=== PATIENT | male | born 1950 | race African-American/Black ===

== ENCOUNTER 2019-01-23 15:21 | Inpatient (IN) | payer MEDICARE, MEDICAID, SELFPAY ==
[2019-01-23] VITALS (14 sets, daily range): BP systolic 115–149; BP diastolic 80–100; PULSE 92–116; RESP 12–26; TEMP 36.1–36.7; O2SAT 94–100; BMI 33.9; BMI 32.8
--- NOTE | 2019-01-23 15:34 | RAD_ITS ---
STUDY: X-RAY CHEST REASON FOR EXAM: Male, 68 years old. Increasing shortness of breath and cough TECHNIQUE: Two view of the chest were performed COMPARISON: None. FINDINGS: There are irregular markings in the bases bilaterally, presumably scarring and/or atelectasis. There is increased density in the posterior lung as seen on the lateral view. There is mild to moderate emphysema. However, lung volumes are near normal. There is no pneumothorax, pulmonary edema or pleural effusions. Cardiac size is normal. Osseous structures are intact. There is no gas under the diaphragms. RAD/Chest PA and Lateral IMPRESSION: 1. Abnormal basilar markings, possibly scarring and/or atelectasis. Recommend more definitive evaluation with CT of the chest. 2. Emphysema. Electronically Signed: Cayetano Galan, at 16:57 EDT Tel , Service support ,
--- NOTE | 2019-01-23 15:34 | EKG12_ITS ---
Test Reason : SOB Blood Pressure : / mmHG Vent. Rate : 092 BPM Atrial Rate : 416 BPM P-R Int : 000 ms QRS Dur : 084 ms QT Int : 348 ms P-R-T Axes : 066 -67 040 degrees QTc Int : 430 ms Sinus rhythm Left axis deviation Low voltage QRS Nonspecific ST abnormality Abnormal ECG Confirmed by CALLIE HOFFMANN, ZAIRA ([id number]), city editor CARRINGTON ASENCIO ([id number]) on 01/25/2019 8:59:28 AM Referred By: KAYKAY Confirmed By:ZAIRA LEDESMA MD
--- NOTE | 2019-01-23 15:40 | ED.VISSUMM ---
- ER Visit Summary Date of Service: 01/23/19 Chief Complaint: Shortness of breath History of Present Illness: The patient is a 68 M who presents with shortness of breath that is been getting worse for the past 2 days. Patient states that he has a history of COPD. Patient was recently treated for pneumonia with Zithromax. Patient states she is coughing up some ray and yellow sputum production. Patient admits to subjective chills and sweats. Patient also admits to some pain over his left chest. Describes the pain as sharp and worse with coughing. Patient denies any leg pain or swelling. Physical Examination: Vital signs are stable except for pulse oximeter of 98% on 4 L nasal cannula and a tachypnea of 24. Patient is afebrile. Patient is in no acute distress. Oral mucosa is pink and moist. Neck is supple. Trachea is midline. There is no JVD noted. Heart was regular rate and rhythm. Lungs show diffuse rhonchi and diminished sounds bilaterally. There is good respiratory effort. There are no retractions noted. Abdomen is soft. Bowel sounds are normal. There is no tenderness. Cranial nerves II through XII are intact. There are no focal motor or sensory deficits noted. Extremities are intact. There is no leg edema or tenderness. Test Results: PA and lateral chest x-ray shows scarring in the bases bilaterally. EKG showed sinus rhythm with a rate of 92. There are no acute ST or T wave changes. CBC and basic metabolic profile were essentially within normal limits. Troponin was normal. Emergency Department Course and Treatment: Patient was given a DuoNeb aerosol and was initially feeling better. Patient then became more short of breath. Patient states he felt like he needed his CPAP. Patient was started on CPAP at 5 cm water pressure. Patient was given a dose of Levaquin here. Case was discussed with the hospitalist. He will admit the patient and his service. Patient understands and is agreeable with the plan. All questions were answered. Disposition: Admit to hospital Impression: COPD exacerbation This note was generated with [employer] dictation software. It may contain incorrect words, spelling, and punctuation that were not noted in review of the chart prior to signing ED Disposition - Plan for ED Patient: Disposition: Acute Care Hospital [facility] Diagnosis: COPD exacerbation
--- NOTE | 2019-01-23 15:54 | NURSING ---
NO OLD EKGS
[2019-01-23] MEDS: Ipratropium/Albuterol Sulfate 3 ML AMPUL.NEB INHALATION ×2 (15:58→23:35)
[2019-01-23 16:51] LABS: Anion Gap 5 (5-15); BUN 5 mg/dL (7-18); BUN/Creat Ratio 4.3 RATIO (10-20); Calcium,Total 9.3 mg/dL (8.5-10.1); Chloride 106 mmol/L (98-107); Creatinine, Serum 1.15 mg/dL (0.70-1.30); EST Glomerular Filtration Rate 67 mL/min (>60); Est Glom Filt Rate - Afr Amer 81 mL/min (>60); Estimated Creatinine Clearance 65.48 ml/min; Glucose 94 mg/dL (74-106); Potassium 4.8 mmol/L (3.5-5.1); Sodium Level 139 mmol/L (136-145)
[2019-01-23 17:33] LABS: Absolute Lymphocyte Count 1.22 X10^3/uL (0.83-4.51); Absolute Neutrophil Count 6.8 X10^3/uL (2.0-7.7); Basophil# 0.05 X10^3/uL; Basophil% 0.5 % (0-1); Eosinophil# 0.66 X10^3/uL; Hematocrit 36.4 % (40-54); Hemoglobin 10.4 g/dL (13.0-16.5); Lymphocyte # 1.22 X10^3/ul (4.0); Mean Corp Hgb Conc 28.6 g/dL (32-36); Mean Corpuscular Hgb 25.9 pg (27.0-32.0); Mean Corpuscular Volume 90.5 fL (80-94); Mean Platelet Vol. 9.8 fl (6.2-12.0); Monocyte# 0.59 X10^3/uL; Monocyte% 6.3 % (0-10); NRBC Flagged by Analyzer 0 % (0-5); Neutrophil # 6.84 X10^3/uL (2.7-7.7); Neutrophil % 72.7 % (47-70); Platelet Count 307 K/mm3 (150-450); RBC Distribution Width CV 15.3 % (11.6-14.6); Red Blood Count 4.02 M/mm3 (4.6-6.2); White Blood Count 9.4 K/mm3 (4.4-11.0)
[2019-01-23 18:04] LABS: Lactic Acid 1.5 mmol/L (0.4-2.0)
[2019-01-23] MEDS: levoFLOXacin IV 750 MG/150 ML BAG 100 MG IV (19:14)
--- NOTE | 2019-01-23 19:17 | PCM.HP.STD ---
Problem List (1) COPD exacerbation Status: Acute History of Present Illness Date of Admission: 01/23/19 Chief Complaint: shortness of breath The patient is a 68 year old male patient with a significant past medical history of COPD presents with 2 days of increasing shortness of breath. Patient was seen and treated for pneumonia 3 weeks ago and subsequently recovered after having received a round of azithromycin. Today he describes his shortness of breath is worsening along with a sharp pain associated with coughing, mid sternal. Patient denies any fevers at this time no nausea or vomiting or diarrhea. Laboratory studies are unremarkable, however, the patient required BiPAP therapy to maintain oxygenation greater than 90% and will therefore be maintained overnight for observation and possibly discharge in the morning. Past Medical History Allergies warfarin Allergy (Verified 01/23/19 15:30) Rash Home Medications: Ambulatory Orders Medication Instructions Recorded ALPRAZolam [Xanax] 0.25 mg PO BID 01/23/19 Apixaban [Eliquis] 5 mg PO BID 01/23/19 Docusate Sodium [Colace] 200 mg PO BID 01/23/19 Finasteride 5 mg PO DAILY 01/23/19 Glipizide 5 mg PO BID 01/23/19 Hydrocodone/Acetaminophen [[place] 1 ea PO Q8H PRN PRN 01/23/19 10-325 Tablet] Insulin Aspart [Novolog Flexpen 12 units SUBCUT TIDCM 01/23/19 ([facility])] Insulin Detemir [Levemir] 15 units SQ QHS 01/23/19 Ipratropium/Albuterol Sulfate 3 ml PO 4X/DAY 01/23/19 [Iprat-Albut 0.5-3(2.5) mg/3 ml] Metoprolol Succinate 50 mg PO DAILY 01/23/19 Polyethylene Glycol 3350 [Miralax] 17 gm PO DAILY 01/23/19 Sennosides [Senna] 8.6 mg PO BID 01/23/19 Tamsulosin HCl 0.4 mg PO DAILY 01/23/19 Smoking Status: Former smoker Tobacco Use: Cigarettes - *Family History Maternal History Items: No pertinent history Review of Systems Constitutional: Denies: Chills, Fever, Weight Change HEENT: Denies: Head Aches, Sinus Congestion, Sinus Drainage Cardiovascular: Denies: Chest Pain, Palpitations Respiratory: Reports: Cough, Shortness of breath at rest, Wheezing. Denies: Sputum production Gastrointestinal: Denies: Abdominal Pain, Nausea, Vomiting Genitourinary: Denies: Dysuria Musculoskeletal: Denies: Joint Pain, Joint Tenderness Skin: Denies: Rash, Wounds Neurological: Denies: Numbness, Tingling, Focal weakness Psychiatric: Denies: Anxiety, Depression, Homicidal Ideations, Suicidal Ideations Hematologic/ Lymphatic: Denies: Easy Bruising, Easy Bleeding VTE Information - Inpt Only VTE Present on Admission: No VTE Mechan Device Prophylaxis: None VTE Pharm Prophylaxis ordered?: Yes Patient Problems: Active and Suspected Problems COPD exacerbation (Acute) - Physical Exam General: Alert, Oriented x3, Cooperative HEENT: Atraumatic, Normocephalic Neck: Supple Lungs: Rhonchi, Wheezes Cardiovascular: Regular rate, Normal S1, Normal S2, No murmurs Abdomen: Bowel Sounds Present, Soft, Non Tender, Obese Extremities: No edema Skin: No rashes Musculoskeletal: No Tenderness to Palpation of Joints or Extremities Neurological: Neuro grossly intact Psych/Mental Status: Normal Affect, Appropriate Vital Signs Temp Pulse Resp BP Pulse Ox 97.2 F L 95 19 H 116/87 H 94 01/23/19 18:18 01/23/19 19:15 01/23/19 19:15 01/23/19 19:15 01/23/19 19:15 Oxygen Flow Rate (L/min) 4 Oxygen Delivery Method Bi-pap Weight: 243 lb 6.245 oz Body Mass Index (BMI) 33.9 Laboratory Tests Past 24 Hrs 01/23/19 01/23/19 01/23/19 16:25 16:50 16:50 WBC 9.4 RBC 4.02 L Hgb 10.4 L Hct 36.4 L MCV 90.5 MCH 25.9 L MCHC 28.6 L RDW Std Deviation 51.0 H RDW Coeff of Hammad 15.3 H Plt Count 307 MPV 9.8 Immature Gran % (Auto) 0.500 Neut % (Auto) 72.7 H Lymph % (Auto) 13.0 L [place] % (Auto) 6.3 Eos % (Auto) 7.0 H Baso % (Auto) 0.5 Absolute Neuts (auto) 6.8 Absolute Lymphs (auto) 1.22 Nucleated RBC % 0 Sodium 139 Potassium 4.8 Chloride 106 Carbon Dioxide 28.0 Anion Gap 5 BUN 5 L Creatinine 1.15 Estim Creat Clear Calc 65.48 Est GFR (MDRD) Af Amer 81 Est GFR (MDRD) Non-Af 67 BUN/Creatinine Ratio 4.3 L Glucose 94 Lactic Acid 1.5 Calcium 9.3 Troponin I < 0.015 Assessment/Plan All Active Problems COPD exacerbation (Acute) Plan 1. COPD- admit to general medical floor for observation of COPD. Encourage smoking cessation. Continue Levaquin 500 mg IV daily. Add Solu-Medrol 40 mg IV every 8 hours as needed, initiate breathing treatments every 4 hours as needed 2. DVT prophylaxis?low molecular weight heparin Code Visit OBSV E&M: 46782 Initial observation care L2
[2019-01-23] MEDS: oxyCODONE 5 MG Tablet PO (22:18)
[2019-01-23] MEDS: Senna Tablet 1 TABLET PO (22:26)
[2019-01-23] MEDS: ALPRAZolam 0.25 MG Tablet PO (22:26)
[2019-01-23] MEDS: Docusate Sodium 100 MG Capsule 200 MG PO (22:26)
[2019-01-23] MEDS: APIXABAN 5 MG TABLET PO (22:26)
[2019-01-24] VITALS (11 sets, daily range): BP systolic 114–131; BP diastolic 70–77; PULSE 96–110; RESP 12–22; TEMP 36.4–37.1; O2SAT 94–98
[2019-01-24 00:16] LABS: Bedside Glucose 105 mg/dL (70-110)
[2019-01-24] MEDS: Ondansetron 4 MG/2 ML Vial IV ×2 (03:07→20:16)
[2019-01-24] MEDS: 0.9% NaCl Peripheral Flush Adult/Peds IV ×2 (03:07→14:47)
[2019-01-24] MEDS: Ipratropium/Albuterol Sulfate 3 ML AMPUL.NEB INHALATION ×5 (04:05→19:23)
[2019-01-24] MEDS: oxyCODONE 5 MG Tablet PO (06:07)
[2019-01-24 06:17] LABS: Absolute Lymphocyte Count 0.49 X10^3/uL (0.83-4.51); Absolute Neutrophil Count 8.7 X10^3/uL (2.0-7.7); Basophil# 0.02 X10^3/uL; Basophil% 0.2 % (0-1); Hematocrit 33.1 % (40-54); Hemoglobin 9.3 g/dL (13.0-16.5); Lymphocyte # 0.49 X10^3/ul (4.0); Lymphocyte % 5.2 % (19-41); Mean Corp Hgb Conc 28.1 g/dL (32-36); Mean Corpuscular Hgb 25.8 pg (27.0-32.0); Mean Corpuscular Volume 91.9 fL (80-94); Monocyte# 0.09 X10^3/uL; NRBC Flagged by Analyzer 0 % (0-5); Neutrophil # 8.73 X10^3/uL (2.7-7.7); Neutrophil % 93.1 % (47-70); POSITIVE DIFFERENTIAL YES; POSITIVE MORPHOLOGY YES; Platelet Count 319 K/mm3 (150-450); RBC Distribution Width CV 15.3 % (11.6-14.6); RBC Distribution Width SD 51.9 fl (35.1-43.9); White Blood Count 9.4 K/mm3 (4.4-11.0)
[2019-01-24 06:23] LABS: Differential Indicated SCAN CRITERIA MET
[2019-01-24 06:39] LABS: Anion Gap 7 (5-15); BUN 7 mg/dL (7-18); BUN/Creat Ratio 6.4 RATIO (10-20); Calcium,Total 8.8 mg/dL (8.5-10.1); Chloride 108 mmol/L (98-107); Creatinine, Serum 1.09 mg/dL (0.70-1.30); EST Glomerular Filtration Rate 71 mL/min (>60); Est Glom Filt Rate - Afr Amer 86 mL/min (>60); Estimated Creatinine Clearance 69.08 ml/min; Glucose 189 mg/dL (74-106); Potassium 5.1 mmol/L (3.5-5.1); Sodium Level 140 mmol/L (136-145)
[2019-01-24 06:58] LABS: Differential Comment SCANNED
[2019-01-24 06:59] LABS: Hypochromasia 2+; Macrocytosis 1+; Microcytosis 2+
[2019-01-24] MEDS: glipiZIDE 5 MG Tablet PO ×2 (07:30→16:53)
[2019-01-24] MEDS: Insulin Lispro 100 UNIT/ML INSULN.PEN 12 UNIT SC ×3 (08:26→16:53)
[2019-01-24 08:31] LABS: Bedside Glucose 190 mg/dL (70-110)
[2019-01-24] MEDS: Polyethylene Glycol 3350 17 GM PACKET PO (09:35)
[2019-01-24] MEDS: Metoprolol(XL)Succ 50 MG Tablet PO (09:35)
[2019-01-24] MEDS: Tamsulosin HCl 0.4 MG Capsule PO (09:36)
[2019-01-24] MEDS: Docusate Sodium 100 MG Capsule 200 MG PO ×2 (09:36→21:22)
[2019-01-24] MEDS: ALPRAZolam 0.25 MG Tablet PO ×2 (09:36→21:21)
[2019-01-24] MEDS: APIXABAN 5 MG TABLET PO ×2 (09:36→21:22)
[2019-01-24] MEDS: Senna Tablet 1 TABLET PO ×2 (09:36→21:23)
[2019-01-24] MEDS: Finasteride 5 MG Tablet PO (09:36)
--- NOTE | 2019-01-24 10:06 | PN_ITS ---
Patient Problems: Active and Suspected Problems COPD exacerbation (Acute) Subjective: Chief complaint: Follow-up after admission for acute COPD exacerbation. Patient seen and examined. No acute events overnight. He still complaining of significant shortness of breath, minimally improved. Still having cough with sputum. He reported pleuritic chest pain upon coughing. He denies fever or chills. He is afebrile, blood pressure R stable, dyspneic, tachypneic and on 4 L of oxygen. - Physical Exam General: Alert, Oriented x3, Cooperative, - - He is in moderate respiratory distress. HEENT: Atraumatic, PERRLA, EOMI, Normocephalic Oral: Moist Mucosa, No Gingival or Mucosal Lesions/ Ulcerations Neck: Supple, No JVD, Negative Carotid Bruits, Trachea Midline, Thyroid Normal Size and Texture Lungs: Short of Breath, Tachypneic, Using Accessory Muscles, - - Markedly decreased breath sounds bilateral, otherwise clear. Cardiovascular: Regular rate, Regular Rhythm, Normal S1, Normal S2, PMI Normal, Tachycardic Abdomen: Bowel Sounds Present, Soft, Non Tender, Non-Distended, No Hepato- splenomegaly, Obese Extremities: No clubbing, No cyanosis, No edema Skin: No rashes, No breakdown Lymphatic: No Cervical, Supraclavicular, or Inguinal Adenopathy Neurological: Cranial nerves II-XII grossly intact, Motor Exam 5/5 strength throughout Psych/Mental Status: Normal Affect, Appropriate, Alert and oriented to time, kandy ce, person, mood and affect Vital Signs Temp Pulse Resp BP Pulse Ox 97.9 F 101 H 20 H 131/75 H 94 01/24/19 09:00 01/24/19 09:35 01/24/19 09:00 01/24/19 09:00 01/24/19 09:00 Oxygen Flow Rate (L/min) 4 Oxygen Delivery Method Nasal Cannula Weight: 235 lb 4 oz Body Mass Index (BMI) 32.8 Intake and Output for Last 24 Hours 01/22/19 01/23/19 01/24/19 23:59 23:59 23:59 Intake Total 150 / 150 240 / 240 Output Total 450 / 450 Balance 150 / 150 -210 / -210 Laboratory Tests Past 24 Hrs 01/23/19 01/23/19 01/23/19 16:25 16:50 16:50 WBC 9.4 RBC 4.02 L Hgb 10.4 L Hct 36.4 L MCV 90.5 MCH 25.9 L MCHC 28.6 L RDW Std Deviation 51.0 H RDW Coeff of Hammad 15.3 H Plt Count 307 MPV 9.8 Immature Gran % (Auto) 0.500 Neut % (Auto) 72.7 H Lymph % (Auto) 13.0 L [place] % (Auto) 6.3 Eos % (Auto) 7.0 H Baso % (Auto) 0.5 Absolute Neuts (auto) 6.8 Absolute Lymphs (auto) 1.22 Nucleated RBC % 0 Differential Comment Hypochromasia Microcytosis Macrocytosis Sodium 139 Potassium 4.8 Chloride 106 Carbon Dioxide 28.0 Anion Gap 5 BUN 5 L Creatinine 1.15 Estim Creat Clear Calc 65.48 Est GFR (MDRD) Af Amer 81 Est GFR (MDRD) Non-Af 67 BUN/Creatinine Ratio 4.3 L Glucose 94 Lactic Acid 1.5 Calcium 9.3 Troponin I < 0.015 01/24/19 01/24/19 05:18 05:18 WBC 9.4 RBC 3.60 L Hgb 9.3 L Hct 33.1 L MCV 91.9 MCH 25.8 L MCHC 28.1 L RDW Std Deviation 51.9 H RDW Coeff of Hammad 15.3 H Plt Count 319 MPV 10.0 Immature Gran % (Auto) 0.500 Neut % (Auto) 93.1 H Lymph % (Auto) 5.2 L [place] % (Auto) 1.0 Eos % (Auto) 0.0 Baso % (Auto) 0.2 Absolute Neuts (auto) 8.7 H Absolute Lymphs (auto) 0.49 L Nucleated RBC % 0 Differential Comment SCANNED Hypochromasia 2+ Microcytosis 2+ Macrocytosis 1+ Sodium 140 Potassium 5.1 Chloride 108 H Carbon Dioxide 25.0 Anion Gap 7 BUN 7 Creatinine 1.09 Estim Creat Clear Calc 69.08 Est GFR (MDRD) Af Amer 86 Est GFR (MDRD) Non-Af 71 BUN/Creatinine Ratio 6.4 L Glucose 189 H Lactic Acid Calcium 8.8 Troponin I POC Glucose 01/24/19 01/23/19 08:25 22:33 POC Glucose 190 H 105 Clinical Impression(s) from Imaging Studies Chest X-Ray 01/23/19 15:34 IMPRESSION: 1. Abnormal basilar markings, possibly scarring and/or atelectasis. Recommend more definitive evaluation with CT of the chest. 2. Emphysema. Electronically Signed: Cayetano Galan, at 16:57 EDT Tel , Service support , Medical Necessity - Tobacco Use Smoking Status: Former smoker Assessment/Plan All Active Problems COPD exacerbation (Acute) This is a 68 years old male patient presented to the medicine because of worsening shortness of breath with productive cough and he was found to have acute COPD exacerbation. #1 acute COPD exacerbation: Chest x-ray reviewed, showed bilateral basilar scarring, no infiltrate or consolidation. Patient is on IV Solu-Medrol, IV Levaquin and DuoNeb every 4 hours. Patient still very dyspneic and tachypneic, markedly decreased breath sounds on the chest auscultation. He is on 4 L of ox ygen and that his baseline at home. Blood cultures pending. Plan: Start albuterol as needed, chest physiotherapy, incentive spirometer, Mucinex twice daily, Robitussin-AC as needed, PT OT evaluation and treatment. #2 chronic hypoxic respiratory failure: Patient is on home oxygen at 3 L at rest and up to 4 L on exertion. At this time, he is on 4 L. Plan as above. #3 chest pain, pleuritic: EKG revealed no acute ischemic changes. Troponin was negative. Plan for Tylenol PRN, [place] PRN as patient has been taking [place] at the long-term. #4 type 2 diabetes mellitus: Blood sugar has been fluctuating while on IV steroids. Patient is on Humalog 3 times daily and Lantus nightly as well as sliding scale. #5 hypertension: Blood pressure stable, continue metoprolol. #6 history of PE: Continue Eliquis. #7 benign prostatic hypertrophy: Stable, continue finasteride and Flomax. #8 anemia: This is probably chronic. Admission hemoglobin was 10.4, it is 9.3 today. Patient denies any active bleeding. #9 DVT prophylaxis: Continue Eliquis. This note was generated with [employer] software. It may contain incorrect words, spelling, and punctuation that were not noted in checking the note before signing. Code Visit Inpatient E&M: 34531 Subs Hosp L2
[2019-01-24] MEDS: HYDROcodone Bitartrate/Apap 5/325 Tablet PO ×3 (11:14→20:16)
[2019-01-24] MEDS: guaiFENesin 1,200 MG Tablet 1200 MG PO ×2 (11:16→21:23)
[2019-01-24] MEDS: guaiFENesin/Codeine 5 ML UDC 10 ML PO ×3 (11:16→23:10)
[2019-01-24 11:55] LABS: Bedside Glucose 144 mg/dL (70-110)
--- NOTE | 2019-01-24 15:10 | CASEMGMT ---
Social Work Received referral from RN OMARI as pt is from [facility] and plans to return there. Phone call to [facility] who confirms pt is a resident there and they plan for his return. Clinical update faxed. Pt may need precert prior to return. Plan: Tracey Ambrosio, pending precert. SHARON Bach
--- NOTE | 2019-01-24 15:12 | CASEMGMT ---
RN CM Assessment Introduced role of RN CM to patient.? Patient is alert, oriented and able?to participate in RN CM Assessment. ?Care providers, pharmacy, and demographics verified. Presentation: SOB, worse the past couple days per ER note. H/o COPD, recently tx for PNA w/zithromax. Admit Dx: COPD Exacerbation Re-Admit: No Barriers/Issues: Patient states that he lives in [place] and came to visit his Dtr Rosemarie here in March 2018 but became sick and has not became better to return to [place]. [facility] has been at [facility] since June 2018 for rehab, plan is to return there and regain strength so that he can return to [place]. 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 Preferred Pharmacy: [facility] Insurance: [employer] [facility] PPO, [facility] Rx Benefit:?Yes ?LNOK: Dtr Rosemarie Almeidahart LW/HPOA: None, the [facility] has the information. Declines offered services to complete on this admission. Living Arrangements:?See Above. Address on demographics is to his Dtr Rosemarie Ross ADL?s: Has been in a WC but ambulates Independently short distances to bathroom and bed. Requires assistance with showering, and facility assists with meds and meals. Otherwise independent. Transportation: DME: CPAP and Home O2 4L continuous- ICP: [place] [address], . [facility], Shower Chair. Facility checks Blood Sugar. HHC: Past in [place] SNF: Past in [place]. Current at [facility] Goal: Return to [facility]. Denies any issues/concerns/or questions with DC planning at this time. Aware CM remains available for any emerging needs. DC PLAN: [facility]. CHRISTOPHER Aguirre
[2019-01-24 17:00] LABS: Bedside Glucose 177 mg/dL (70-110)
[2019-01-24] MEDS: levoFLOXacin IV 500 MG/100 ML BAG 100 MG IV (21:21)
[2019-01-24 21:35] LABS: Bedside Glucose 187 mg/dL (70-110)
[2019-01-25] VITALS (14 sets, daily range): BP systolic 108–126; BP diastolic 54–70; PULSE 77–102; RESP 12–21; TEMP 36.4–36.8; O2SAT 94–100
[2019-01-25] MEDS: Albuterol 2.5 MG/3 ML VIAL.NEB. INHALATION (04:45)
[2019-01-25] MEDS: HYDROcodone Bitartrate/Apap 5/325 Tablet PO ×4 (05:18→21:45)
[2019-01-25] MEDS: Ipratropium/Albuterol Sulfate 3 ML AMPUL.NEB INHALATION ×4 (06:45→17:15)
[2019-01-25 08:00] LABS: Bedside Glucose 182 mg/dL (70-110)
[2019-01-25] MEDS: Docusate Sodium 100 MG Capsule 200 MG PO ×2 (08:24→21:45)
[2019-01-25] MEDS: Metoprolol(XL)Succ 50 MG Tablet PO (08:24)
[2019-01-25] MEDS: Senna Tablet 1 TABLET PO ×2 (08:25→21:45)
[2019-01-25] MEDS: Insulin Lispro 100 UNIT/ML INSULN.PEN 12 UNIT SC ×3 (08:25→16:55)
[2019-01-25] MEDS: guaiFENesin 1,200 MG Tablet 1200 MG PO ×2 (08:25→21:46)
[2019-01-25] MEDS: Tamsulosin HCl 0.4 MG Capsule PO (08:25)
[2019-01-25] MEDS: APIXABAN 5 MG TABLET PO ×2 (08:26→21:45)
[2019-01-25] MEDS: Finasteride 5 MG Tablet PO (08:26)
--- NOTE | 2019-01-25 09:03 | PN_ITS ---
Patient Problems: Active and Suspected Problems COPD exacerbation (Acute) Subjective: Chief complaint: Follow-up after admission for acute COPD exacerbation. Patient seen and examined. No acute events overnight. Today, patient stated that he is feeling better, shortness of breath started to improve. Still having cough with minimal sputum. He remained on 4 L of oxygen. Other vital signs are stable. - Physical Exam General: Alert, Oriented x3, Cooperative, - - Short of breath. HEENT: Atraumatic, PERRLA, EOMI, Normocephalic Oral: Moist Mucosa, No Gingival or Mucosal Lesions/ Ulcerations Neck: Supple, No JVD, Negative Carotid Bruits, Trachea Midline, Thyroid Normal Size and Texture Lungs: No wheeze, No rales, Diminished, Rhonchi, Short of Breath, - - Decreased breath sounds bilateral, occasional rhonchi. Cardiovascular: Regular rate, Regular Rhythm, Normal S1, Normal S2, PMI Normal Abdomen: Bowel Sounds Present, Soft, Non Tender, Non-Distended, Obese Extremities: No clubbing, No cyanosis, No edema Skin: No rashes, No breakdown Lymphatic: No Cervical, Supraclavicular, or Inguinal Adenopathy Neurological: Cranial nerves II-XII grossly intact, Neuro grossly intact Psych/Mental Status: Normal Affect, Appropriate, Alert and oriented to time, place, person, mood and affect Vital Signs Temp Pulse Resp BP Pulse Ox 97.7 F L 95 20 H 108/69 97 01/25/19 08:15 01/25/19 08:24 01/25/19 08:15 01/25/19 08:15 01/25/19 08:15 Oxygen Flow Rate (L/min) 4 Oxygen Delivery Method Nasal Cannula Weight: 235 lb 4 oz Body Mass Index (BMI) 32.8 Intake and Output for Last 24 Hours 01/23/19 01/24/19 01/25/19 23:59 23:59 23:59 Intake Total 150 / 150 1200 / 1200 Output Total 875 / 1675 1250 / 1250 Balance 150 / 150 325 / -475 -1250 / -1250 POC Glucose 01/25/19 01/24/19 01/24/19 07:54 21:30 16:50 POC Glucose 182 H 187 H 177 H 01/24/19 11:53 POC Glucose 144 H Medical Necessity - Tobacco Use Smoking Status: Former smoker Tobacco Use: Cigarettes Assessment/Plan All Active Problems COPD exacerbation (Acute) This is a 68 years old male patient presented to the medicine because of worsening shortness of breath with productive cough and he was found to have acute COPD exacerbation. #1 acute COPD exacerbation: He is on IV steroids, IV Levaquin and bronchodilators. Chest x-ray reviewed, showed bilateral basilar scarring, no infiltrate or consolidation. Today, patient reported some improvement of his shortness of breath. Remains on 4 L of oxygen, other vital signs are stable. Blood cultures pending. Plan to taper down IV Solu-Medrol, continue other treatments, anticipate discharge tomorrow. #2 chronic hypoxic respiratory failure: Patient is on home oxygen at 3 L at rest and up to 4 L on exertion. At this time, he is on 4 L. Plan as above. #3 chest pain, pleuritic: EKG revealed no acute ischemic changes. Troponin was negative. Continue Tylenol PRN, [employer] PRN. #4 type 2 diabetes mellitus: Blood sugar under better control. Patient is on Humalog 3 times daily and Lantus nightly as well as sliding scale. #5 hypertension: Blood pressure stable, continue metoprolol. #6 history of PE: Continue Eliquis. #7 benign prostatic hypertrophy: Stable, continue finasteride and Flomax. #8 anemia: This is probably chronic. Admission hemoglobin was 10.4, it is 9.3 yesterday. Patient denies any active bleeding. #9 DVT prophylaxis: Continue Eliquis. This note was generated with [employer] dictation software. It may contain incorrect words, spelling, and punctuation that were not noted in checking the note before signing. Code Visit Inpatient E&M: 11380 Subs Hosp L2
--- NOTE | 2019-01-25 10:17 | CASEMGMT ---
SUMIT called Tracey Coker, there is nobody in admissions today. The medical editor offered to assist. SW explained pt is here and inquired if they will want to get a precert for pt to return under his [employer], or have him return under his Medicaid. She stated would ask the admissions person and call this SW back. SW explained will send PT/OT once completed anyway in the event they would like to work on precert, however when pt is ready we will send him back under his Medicaid and they can work on precert while pt is there. SUMIT will continue to follow. ANDRIY Pina
[2019-01-25] MEDS: glipiZIDE 5 MG Tablet PO ×2 (10:33→16:55)
[2019-01-25] MEDS: Polyethylene Glycol 3350 17 GM PACKET PO (10:33)
[2019-01-25] MEDS: ALPRAZolam 0.25 MG Tablet PO ×2 (10:33→21:46)
[2019-01-25] MEDS: guaiFENesin/Codeine 5 ML UDC 10 ML PO ×2 (10:38→21:55)
--- NOTE | 2019-01-25 10:44 | NURSING ---
Pt is using his own inhaler at bedside, this nurse does not know what kind it is, explained to him that he could get too much medication, since he is getting aerosol treatments, he replied I know, I know, I've been dealing with this for 5 year. Pt refused to turn in inhaler.
[2019-01-25 11:36] LABS: Bedside Glucose 195 mg/dL (70-110)
--- NOTE | 2019-01-25 12:59 | CASEMGMT ---
Addendum entered by Carlita Acevedo 01/25/19 14:00: SUMIT faxed over OT notes and progress notes to Pepper Feliz at [facility], PT evaluation has not yet been completed. ANDRIY Pina Original Note: SUMIT received a message from Pepper Feliz at [facility]([phone]). She states pt can return whenever ready. If there are any clinical updates, she would like them to be faxed to [phone]). SUMIT left message back stating it is anticipated that pt will return tomorrow, will fax PT/OT evaluations to Pepper once they are completed. ANDRIY Pina
[2019-01-25 16:36] LABS: Bedside Glucose 245 mg/dL (70-110)
[2019-01-25] MEDS: 0.9% NaCl Peripheral Flush Adult/Peds IV (19:01)
[2019-01-25] MEDS: Ondansetron 4 MG/2 ML Vial IV (19:01)
[2019-01-25] MEDS: levoFLOXacin IV 500 MG/100 ML BAG 100 MG IV (21:45)
[2019-01-25 22:21] LABS: Bedside Glucose 148 mg/dL (70-110)
[2019-01-26] VITALS (7 sets, daily range): BP systolic 117–120; BP diastolic 76; PULSE 80–92; RESP 12–20; TEMP 36.5–36.9; O2SAT 94–99
[2019-01-26] MEDS: guaiFENesin/Codeine 5 ML UDC 10 ML PO (05:45)
[2019-01-26] MEDS: Ipratropium/Albuterol Sulfate 3 ML AMPUL.NEB INHALATION ×2 (06:59→11:39)
[2019-01-26] MEDS: HYDROcodone Bitartrate/Apap 5/325 Tablet PO (07:44)
[2019-01-26] MEDS: guaiFENesin 1,200 MG Tablet 1200 MG PO (07:48)
[2019-01-26] MEDS: Polyethylene Glycol 3350 17 GM PACKET PO (07:48)
[2019-01-26] MEDS: Docusate Sodium 100 MG Capsule 200 MG PO (07:49)
[2019-01-26] MEDS: Tamsulosin HCl 0.4 MG Capsule PO (07:49)
[2019-01-26] MEDS: Finasteride 5 MG Tablet PO (07:49)
[2019-01-26] MEDS: APIXABAN 5 MG TABLET PO (07:49)
[2019-01-26] MEDS: Metoprolol(XL)Succ 50 MG Tablet PO (07:49)
[2019-01-26] MEDS: glipiZIDE 5 MG Tablet PO (07:49)
[2019-01-26] MEDS: Senna Tablet 1 TABLET PO (07:49)
[2019-01-26] MEDS: ALPRAZolam 0.25 MG Tablet PO (07:54)
--- NOTE | 2019-01-26 07:55 | NURSING ---
am meds given at this time per pt request as he normally takes
[2019-01-26 08:11] LABS: Bedside Glucose 190 mg/dL (70-110)
[2019-01-26] MEDS: Insulin Lispro 100 UNIT/ML INSULN.PEN 12 UNIT SC (09:14)
[2019-01-26] MEDS: 0.9% NaCl Peripheral Flush Adult/Peds IV ×2 (09:15→12:19)
--- NOTE | 2019-01-26 10:19 | PCM.TXEXTCAR ---
- Diet 01/23/19 21:28 Diet: Calorie controlled diet, 1800 buster Food consistency:: Regular Liquid Consistency:: Regular/Thin Is pt able to select menu?: Yes - Routine Orders/Code Status O2 Liters per Minute: 4 O2 Frequency: Continuous Keep PO Greater than or Equal to (%): 90 - Suggestions for Active Care Change Position every (hours): 3 Hours to sit in a chair: 2 Times a day to sit in chair: 3 - Therapies Weight Bearing: Weight bearing as tolerated Physical Therapy: Eval and Treat Occupational Therapy: Eval and Treat - Allergies/Procedures Done in Hospital Allergies/Adverse Reactions: Allergies warfarin Allergy (Verified 01/23/19 15:30) Rash - Type of Care/Length of Stay Estimated LOS: Convalescent Care Less Than 30 days Type of Care Needed: Skilled Rehab Potential: Fair Prognosis: Fair - Additional Orders/Day of Discharge Additional Orders: Once patient reach dose of 10 mg prednisone, please continue with prednisone at 10 mg daily. H&P will serve as current which was dated: 01/23/19 Day of Discharge: 01/26/19 - Dietary and Speech Recommendations Dietitian Recommendations/Changes: Recommend a diet change to 2000 calorie controlled, cardiac diet. - Follow Up Care Primary Care Physician: Earl Dumont PA [Primary Care Provider] - Please follow up with your Primary Care Physician in: 1 week.
--- NOTE | 2019-01-26 11:13 | CASEMGMT ---
Pt is ready for discharge today back to [facility]. SUMIT called Dahlia Feliz in admissions at [facility], let her know pt will be returning to [facility] today. She states to call the facility directly as she is out at a a training. SUMIT spoke w/pt, he is aware is returning to [facility] today, he does not have a preference for transportation company. Pt has already let his daughter Rosemarie know he is returning today. SUMIT called [facility], set up a 2pm ambulance. SUMIT let pt, RN here, and [facility] know the time of pickup. SUMIT also faxed all discharge instructions to [facility]. No further needs, pt returning to [facility] today. ANDRIY Pina
[2019-01-26] MEDS: Ondansetron 4 MG/2 ML Vial IV (12:20)
[2019-01-26 12:36] LABS: Bedside Glucose 115 mg/dL (70-110)
--- NOTE | 2019-01-26 12:48 | PCM.DC.SUM ---
Discharge Date and Diagnosis - Problem List Patient Problems: Active and Suspected Problems COPD exacerbation (Acute) Date of Admission: 01/23/19 Date of Discharge: 01/26/19 - Primary Discharge Diagnosis Active and Suspected Problems #1 COPD exacerbation (Acute). #2 pleuritic chest pain, ACS ruled out. - Secondary Discharge Diagnosis Chronic Problems COPD (chronic obstructive pulmonary disease) (Chronic) Benign prostatic hyperplasia (Chronic) Hypertension (Chronic) Type 2 diabetes mellitus (Chronic) History of pulmonary embolism (Chronic) Chronic respiratory failure (Chronic) Hospital Course and Treatment Imaging Results: Clinical Impression(s) from Imaging Studies Chest X-Ray 01/23/19 15:34 IMPRESSION: 1. Abnormal basilar markings, possibly scarring and/or atelectasis. Recommend more definitive evaluation with CT of the chest. 2. Emphysema. Electronically Signed: Cayetano Angelia, at 16:57 EDT Tel , Service support , Operations: None Procedures: None Summary of Care Provided: Patient seen and examined on day of discharge and appeared to be stable to be discharged back to the [facility]. Patient reported that his shortness of breath is getting better every day and he thinks he is back to his baseline. He remained on 4 L of oxygen which is his baseline. His other vital signs are stable. The patient is a 68 year old M presented to the emergency room because of worsening shortness of breath with productive cough and he was found to have acute COPD exacerbation. His chest x-ray revealed chronic bilateral basilar scarring with emphysematous changes without acute infiltrate or consolidation. Pneumonia ruled out. Patient was treated with IV steroids, IV Levaquin and bronchodilators. Routine blood work was remarkable for chronic anemia, otherwise normal. Blood culture showed no growth in 48 hours. Patient is diabetic but his blood sugar remained stable while on IV steroids. With above-mentioned treatment, patient symptoms improved and he remained on 4 L of oxygen. Dyspnea and tachypnea also improved. Patient discharged back to the [facility] in a stable medical condition, discharged on tapering course of prednisone, discharged on Levaquin for 5 days, continued on his previous home medications including nebulizer and inhaler treatments without any changes, recommended follow-up with PCP in 1 week. Patient Problems: Active and Suspected Problems COPD exacerbation (Acute) - Physical Exam General: Alert, Oriented x3, Cooperative, - - Minimally short of breath. HEENT: Atraumatic, PERRLA, EOMI, Normocephalic Oral: Moist Mucosa, No Gingival or Mucosal Lesions/ Ulcerations Neck: Supple, No JVD, Negative Carotid Bruits, Trachea Midline, Thyroid Normal Size and Texture Lungs: Clear to auscultation, No rhonchi, No wheeze, No rales, Diminished Cardiovascular: Regular rate, Regular Rhythm, Normal S1, Normal S2, PMI Normal Abdomen: Bowel Sounds Present, Soft, Non Tender, Non-Distended, No Hepato-splenomegaly, Obese Extremities: No clubbing, No cyanosis, No edema Skin: No rashes, No breakdown Lymphatic: No Cervical, Supraclavicular, or Inguinal Adenopathy Neurological: Cranial nerves II-XII grossly intact, Neuro grossly intact Psych/Mental Status: Normal Affect, Appropriate Vital Signs Temp Pulse Resp BP Pulse Ox 97.7 F L 92 18 117/76 99 01/26/19 08:06 01/26/19 11:39 01/26/19 11:39 01/26/19 08:06 01/26/19 08:06 Oxygen Flow Rate (L/min) 4 Oxygen Delivery Method Nasal Cannula Weight: 235 lb 4.014 oz Body Mass Index (BMI) 32.8 Intake and Output for Last 24 Hours 01/24/19 01/25/19 01/26/19 23:59 23:59 23:59 Intake Total 1200 / 1200 400 / 1000 1300 / 1300 Output Total 875 / 1675 1250 / 1250 1000 / 1000 Balance 325 / -475 -850 / -250 300 / 300 Microbiology Past 72 Hours 01/23/19 16:00 Blood Culture - Preliminary Blood Culture (Wb) #2 - Right Hand No growth in 48 hours. 01/23/19 16:50 Blood Culture - Preliminary Blood Culture (Wb) - Left Hand No growth in 48 hours. POC Glucose 01/26/19 01/26/19 01/25/19 12:15 08:00 21:50 POC Glucose 115 H 190 H 148 H 01/25/19 16:31 POC Glucose 245 H Home Medications: Medications to take at Discharge ALPRAZolam [Xanax] 0.25 mg PO BID 01/23/19 Apixaban [Eliquis] 5 mg PO BID 01/23/19 Docusate Sodium [Colace] 200 mg PO BID 01/23/19 Finasteride 5 mg PO DAILY 01/23/19 Glipizide 5 mg PO BID 01/23/19 Hydrocodone/Acetaminophen [[place] 10-325 Tablet] 1 ea PO Q8H PRN PRN 01/23/19 Insulin Aspart [Novolog Flexpen] 12 units SUBCUT TIDCM 01/23/19 Insulin Detemir [Levemir] 15 units SQ QHS 01/23/19 Ipratropium/Albuterol Sulfate [Iprat-Albut 0.5-3(2.5) mg/3 ml] 3 ml PO 4X/DAY 01/23/19 Metoprolol Succinate 50 mg PO DAILY 01/23/19 Polyethylene Glycol 3350 [Miralax] 17 gm PO DAILY 01/23/19 Sennosides [Senna] 8.6 mg PO BID 01/23/19 Tamsulosin HCl 0.4 mg PO DAILY 01/23/19 Guaifenesin/Dextromethorphan [Mucinex Dm ER 1,200-60 mg Tab] 1 ea PO BID 01/24/19 Prednisone 10 mg PO DAILY #30 tab 01/26/19 levoFLOXacin tablet [Levaquin tablet] 500 mg PO DAILY #5 tab 01/26/19 Following Prescrptions Were Given to Patient: levoFLOXacin tablet [Levaquin tablet] 500 mg PO DAILY #5 tab Prescription Printed Prednisone 10 mg PO DAILY #30 tab Prescription Printed Primary Care Physician: Earl Dumont PA [Primary Care Provider] - Please follow up with your Primary Care Physician in: 1 week. [facility]position[facility] facility Minutes spent on discharge:: 28 Patient Condition:: Stable Medical Necessity - Tobacco Use Smoking Status: Former smoker Tobacco Use: Cigarettes Meaningful Use Info Meaningful Use Diagnoses (Choose all that apply): None applicable Code Visit Inpatient E&M: 00114 Disch Hosp
--- NOTE | 2019-01-26 12:52 | NURSING ---
REPORT CALLED TO KRYST[facility] AT [facility].
== END 2019-01-26 14:14 | disposition skilled nursing facility (03) | DRG 191 ==
LOC: ED 19:15 → MS2 19:31
PROVIDERS: Admitting Provider Family Medicine; Emergency Provider Emergency Medicine; Family Provider Physician Assistant; PCP Physician Assistant; Visit Provider Hospitalist
DX: J44.1 Chronic obstructive pulmonary disease with (acute) exacerbation (principal); J96.11 Chronic respiratory failure with hypoxia; Z99.81 Dependence on supplemental oxygen; E11.9 Type 2 diabetes mellitus without complications; I10 Essential (primary) hypertension; D64.9 Anemia, unspecified; Z87.891 Personal history of nicotine dependence; N40.0 Benign prostatic hyperplasia without lower urinary tract symptoms; Z79.01 Long term (current) use of anticoagulants; Z79.4 Long term (current) use of insulin; R07.89 Other chest pain; Z86.711 Personal history of pulmonary embolism
CPT/HCPCS: 36415; 71046; 80048; 82962; 83605; 84484; 85025; 87040; 93005; 94002; 94003; 94640; 94667; 94668; 97110; 97116; 97162; 97166; 97530; 99285; J7030; A4216; J2405